=== PATIENT | female | born 1990 | race Caucasian/White ===

== ENCOUNTER 2017-01-12 11:56 | Outpatient (CLI) | payer OTHER | END 2017-01-12 11:57 | disposition home or self-care (01) | LOC: NC 11:56 | PROVIDERS: ATTEND Internal Medicine | DX: E66.01 Morbid (severe) obesity due to excess calories (principal); Z71.3 Dietary counseling and surveillance; Z68.43 Body mass index [BMI] 50.0-59.9, adult; I10 Essential (primary) hypertension ==

== ENCOUNTER 2017-02-02 10:51 | Outpatient (CLI) | payer OTHER | END 2017-02-02 10:52 | disposition home or self-care (01) | LOC: NC 10:51 | PROVIDERS: ATTEND Internal Medicine | DX: E66.01 Morbid (severe) obesity due to excess calories (principal); Z71.3 Dietary counseling and surveillance; Z68.43 Body mass index [BMI] 50.0-59.9, adult; I10 Essential (primary) hypertension ==